=== PATIENT | female | born 1980 | race African-American/Black ===

== ENCOUNTER 2017-03-16 13:37 | Inpatient (IN) | payer OTHER ==
[2017-03-16] MEDS: LACTATED RINGERS 1,000 ML IV SCH ×3 (13:40→20:20)
[2017-03-16 14:49] VITALS: RESP 16
[2017-03-16 15:26] LABS: Amorphous Sediment,Urine Rare /hpf; Appearance,Urine Cloudy (Clear); Bacteria,Urine Rare /hpf; Bilirubin,Urine Negative (Negative); Glucose,Urine (UA) Negative (Negative); Ketones,Urine 2+ (Negative); Leukocyte Esterase,Urine Small (Negative); Mucus,Urine Rare /hpf; Nitrite,Urine Negative (Negative); Particle Count 3459; Protein,Urine Negative (Negative); Specific Gravity,Urine 1.008 (1.001-1.035); Squamous Epithelial Cell,Urine 2 /hpf (0-4); UA Billing (MACRO vs. MICRO) MICRO; Urobilinogen,Urine <2.0 mg/dL (<2.0); WBC,Urine 3 /hpf (0-5)
[2017-03-16 16:00] LABS: Basophils % (A) 0 %; CH 28.3; CHCM 31.7; Eosinophils % (A) 0 %; HCT 32.2 % (34.0-46.0); HDW 2.86; HGB 10.5 gm/dL (11.4-16.0); Hypochromasia Slight; Luc # (Auto) 0.17; Luc % (Auto) 2; Lymphocytes # (A) 1.6 k/uL (1.0-4.8); Lymphocytes % (A) 14 %; MCH 29.2 pg (25.0-35.0); MCHC 32.6 g/dL (31.0-37.0); MCV 89.7 fL (80.0-100.0); Mean Platelet Volume 8.6; Monocytes # (A) 0.3 k/uL (0-1.0); Monocytes % (A) 3 %; Neutrophils % (A) 81 %; RBC 3.59 m/uL (3.80-5.40); RDW 14.9 % (11.5-15.5); WBC 11.1 k/uL (3.8-10.6); WBC (Perox) 11.77
--- NOTE | 2017-03-16 16:44 | P.HPOB ---
History of Present Illness H&P Date: 03/16/17 Chief Complaint: petitioned due to suicidal ideation, 37 weeks 5 days 37 year old presented to triage at 37 weeks 5 days complaining of contractions. HEr cervix is 2-3/50/-3. She was stephy every few minutes when she arrived but they spaced out now and have stopped. Upon questioning, pt admits that today she had thoughts of hurting herself. She has a history of bipolar and schizoaffective disorder. She also has a history of cocaine use. She was in [place] for treatment and then recently moved to [facility]. The [facility] today she woke up with thoughts of suicidal ideation. She admits to wanting to hang herself earlier today. I asked. She was having resolve even though she was . She said "yes". Review of Systems All systems: negative Constitutional: Denies chills, Denies fever Eyes: denies blurred vision, denies pain Ears, nose, mouth and throat: Denies headache, Denies sore throat Cardiovascular: Denies chest pain, Denies shortness of breath Respiratory: Denies cough Gastrointestinal: Denies abdominal pain, Denies diarrhea, Denies nausea, Denies vomiting Genitourinary: Denies dysuria, Denies hematuria Musculoskeletal: Denies myalgias Integumentary: Denies pruritus, Denies rash Neurological: Denies numbness, Denies weakness Psychiatric: Denies anxiety, Denies depression Endocrine: Denies fatigue, Denies weight change Past Medical History Past Medical History: Musculoskeletal Disorder (chronic back pain) Additional Past Medical History / Comment(s): OB history: 1 ectopic, 1 vaginal delivery 11 years ago, This is her third and she has had no care-treated for cocaine use during this . dating by 23 week US. O+, abs neg, Rub nonimmune, HEp B neg. GBS neg. History of Any Multi-Drug Resistant Organisms: None Reported Past Surgical History: Orthopedic Surgery (back surgery) Additional Past Surgical History / Comment(s): mandibular sugery Past Psychological History: Bipolar, Schizoaffective Disorder Smoking Status: Former smoker Past Drug Use History: Cocaine (last used one month ago) Medications and Allergies Allergies Allergy/AdvReac Type Severity Reaction Status Date / Time No Known Allergies Allergy Verified 03/16/17 13:42 Exam Osteopathic Statement: *. No significant issues noted on an osteopathic structural exam other than those noted in the History and Physical/Consult. - Vital Signs Vital signs: Vital Signs Temp Pulse Resp BP Pulse Ox 03/16/17 13:43 96.9 F L 76 16 114/68 100 Intake and Output 03/16/17 03/16/17 03/16/17 06:59 14:59 22:59 Other: Weight 60.781 kg Patient Weight 03/17/17 06:59 Weight 60.781 kg Heart: Regular rate and rhythm Lungs: Clear to auscultation bilaterally Abdomen: Soft, nontender Extremities: Negative Homans sign Results Result Diagrams: 03/16/17 15:38 03/16/17 15:38 Abnormal Lab Results - Last 24 Hours (Table) 03/16/17 03/16/17 Range/Units 15:15 15:38 WBC 11.1 H (3.8-10.6) k/uL RBC 3.59 L (3.80-5.40) m/uL Hgb 10.5 L (11.4-16.0) gm/dL Hct 32.2 L (34.0-46.0) % Neutrophils # 9.0 H (1.3-7.7) k/uL Urine Appearance Cloudy H (Clear) Urine Ketones 2+ H (Negative) Ur Leukocyte Esterase Small H (Negative) Amorphous Sediment Rare H (None) /hpf Urine Bacteria Rare H (None) /hpf Urine Mucus Rare H (None) /hpf Assessment and Plan (1) 37 weeks gestation of Status: Acute (2) Suicidal ideation Status: Acute Plan: 1. admit to [facility] 2. NST q shift 3. psych consult 4. sitter to stay with patient
[2017-03-16 18:33] VITALS: BMI 22.3
[2017-03-17] MEDS: LACTATED RINGERS 1,000 ML IV SCH ×3 (04:04→07:02)
--- NOTE | 2017-03-17 05:02 | P.MSEPDOC ---
Presenting Problems - Arrival Data Date of Arrival on Unit: 03/16/17 Time of Arrival on Unit: 13:30 Mode of Transport: EMS - Complaint OB-Reason for Admission/Chief Complaint: Possible Onset of Labor, Other Comment: hx of cocaine use with preg. states not taken for last month Medical History - Information : 3 Para: 1 Term: 1 : 0 Abortions: Spontaneous or Elective: 1 Number of Living Children: 1 - Gestational Age Expected Date of Delivery: 04/01/17 Gestational Age by KOBI (wks/days): 37 Weeks and 6 Days - History Complications: No Care Review of Systems - Review of Systems Constitutional: No problems Breast: No problems ENT: No problems Cardiovascular: No problems Respiratory: No problems Gastrointestinal: No problems Genitourinary: No problems Musculoskeletal: No problems Neurological: No problems Skin: No problems Comment: states high risk preg due to drugs, cocaine. giving baby up. doesnt have last child. Vital Signs - Temperature Temperature: 96.7 F Temperature Source: Tympanic - Pulse Radial Pulse Rate: 84 Pulse Assessment Method: Automatic Cuff - Respirations Respiratory Rate: 16 Oxygen Delivery Method: Room Air O2 Sat by Pulse Oximetry: 100 - Blood Pressure Right Arm Blood Pressure: 112/72 Blood Pressure Mean: 85 Blood Pressure Source: Automatic Cuff Medical Screen Scoring (Pre) - Cervical Exam Dilation: 1-3 cm = 1 Effacement: More than 50% = 2 Membranes: Intact - Uterine Contractions Frequency: > 5 minutes apart = 1 Duration: > 40 seconds = 2 Intensity: N/A - Maternal Vital Signs Maternal Temperature: N/A Maternal Blood Pressure: N/A Signs of Preeclampsia: N/A Maternal Respirations: N/A - Maternal Trauma Maternal Trauma: N/A - Assessment Baseline FHR: 135 Heart Rate - NICHD Category: Category I (Normal) = 0 NST: Reactive Position: N/A Station: N/A - Total Score Total Score (Pre): 6 - Level of Risk Level of Risk: Medium (6-9) Physician Notification (Pre) - Physician Notified Physician Notified Date: 03/16/17 Physician Notified Time: 13:45 Spoke With: dr maria r Louise Order Received: Yes Medical Screen Scoring (Post) - Cervical Exam Dilation: Exam Deferred Effacement: Exam Deferred Membranes: Intact - Uterine Contractions Frequency: > 5 minutes apart = 1 Duration: N/A Intensity: N/A - Maternal Vital Signs Maternal Temperature: N/A Maternal Blood Pressure: N/A Signs of Preeclampsia: N/A Maternal Respirations: N/A - Total Score Total Score (Post): 1 Physician Notification (Post) - Physician Notified Physician Notified Date: 03/16/17 Physician Notified Time: 16:15 New Order Received: Yes (dr heck in hospital on unit/ talking with pt.) - Notification Comment Comment: pt under observation and s.s. precautions. with sitter. until psy consulting completed Disposition - Disposition OB Disposition: Admit I agree with the RN Medical Screening Exam: Yes Risk & Benefit of care provided described in d/c instruction: Yes Diagnosis: FALSE LABOR AT OR AFTER 37 COMPLETED WEEKS OF GESTATION
--- NOTE | 2017-03-17 05:12 | P.PN ---
Progress Note - Text Pt resting comfortably in bed. She is waiting for her the psychiatrist to come see her. She had a good meal last night and is sleeping ok. NSTs have been reactive. Occasional contractions. Good movement. VSS Abdomen is soft and nontender Extremeties: neg homans and no edema A1. at 37 weeks 6 days 2. suicidal ideation 3. hx bipolar and schizoaffective disorder 4. hx recent cocaine abuse and current rehab stay P1. really looking for psych recs to see where pt should be placed at this time
[2017-03-17 21:58] VITALS: BP 110/76; PULSE 76; TEMP 97.8
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
== END 2017-03-17 22:48 | DRG 775 ==
LOC: FBPOP 13:37 → 4FBP 16:45
PROVIDERS: ADMIT Obstetrics & Gynecology; ATTEND Obstetrics & Gynecology
DX: O99.344 Other mental disorders complicating childbirth (principal); R45.851 Suicidal ideations; F25.9 Schizoaffective disorder, unspecified; M54.9 Dorsalgia, unspecified; G89.29 Other chronic pain; F32.9 Major depressive disorder, single episode, unspecified; F14.10 Cocaine abuse, uncomplicated; F43.10 Post-traumatic stress disorder, unspecified; Z3A.37 37 weeks gestation of pregnancy
CPT/HCPCS: 59025; 80306; 81001; 82947; 85025; 99213

== ENCOUNTER 2017-03-17 22:56 | Inpatient (IN) | payer MEDICAID, OTHER ==
[2017-03-18] MEDS ORDERED: ACETAMINOPHEN TAB 325 MG TAB PO PRN (04:50)
[2017-03-18 06:06] VITALS: BMI 41.1
--- NOTE | 2017-03-19 08:41 | P.OBCN ---
History of Present Illness Consult date: 03/19/17 Reason for consult: other (, no care) Chief complaint: suicidal ideation, contractions, hx cocaine abuse History of present illness: 37 year old G 3 P1 is now 38 weeks and 1 day admitted to the mental health unit and [facility]. She presented to the hospital 3 days ago complaining of contractions that did resolve but she was kept because she admitted to thoughts of hurting herself and had a plan to hang herself. Currently she has good movement, no vaginal bleeding, irregular contractions. NSTs have been reactive. Review of Systems All systems: negative Constitutional: Denies chills, Denies fever Eyes: denies blurred vision, denies pain Ears, nose, mouth and throat: Denies headache, Denies sore throat Cardiovascular: Denies chest pain, Denies shortness of breath Respiratory: Denies cough Gastrointestinal: Denies abdominal pain, Denies diarrhea, Denies nausea, Denies vomiting Genitourinary: Denies dysuria, Denies hematuria Musculoskeletal: Denies myalgias Integumentary: Denies pruritus, Denies rash Neurological: Denies numbness, Denies weakness Psychiatric: Denies anxiety, Denies depression Endocrine: Denies fatigue, Denies weight change Past Medical History Past Medical History: Musculoskeletal Disorder Additional Past Medical History / Comment(s): OB history: 1 ectopic, 1 vaginal delivery 11 years ago, This is her third and she has had no care-treated for cocaine use during this . dating by 23 week US. O+, abs neg, Rub nonimmune, HEp B neg. GBS neg. History of Any Multi-Drug Resistant Organisms: None Reported Past Surgical History: Orthopedic Surgery Additional Past Surgical History / Comment(s): mandibular sugery Past Anesthesia/Blood Transfusion Reactions: No Reported Reaction Smoking Status: Former smoker - Past Family History Father History Unknown: Yes Medications and Allergies Home Medications Medication Instructions Recorded Confirmed Type No Known Home Medications [No 03/18/17 03/18/17 History Known Home Medications] Allergies Allergy/AdvReac Type Severity Reaction Status Date / Time No Known Allergies Allergy Verified 03/18/17 08:20 Exam Osteopathic Statement: *. No significant issues noted on an osteopathic structural exam other than those noted in the History and Physical/Consult. - Vital Signs Vital signs: Vital Signs Temp Pulse Resp BP 03/19/17 03:44 98.0 F 67 18 108/70 Heart: Regular rate and rhythm Lungs: Clear to auscultation bilaterally Abdomen: Soft, nontender and gravid Extremities: Negative Homans sign. Assessment and Plan (1) 38 weeks gestation of Status: Acute Plan: 1. Continue nonstress tests every shift while patient is in the hospital 2. Encouraged patient to ambulate more to increased blood flow prevent blood clots.
[2017-03-19] MEDS ORDERED: ONDANSETRON 4 MG TAB PO PRN (16:47)
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
[2017-03-20] MEDS: PRENATAL VIT-IRON-FOLIC ACID 1 EACH CAP PO SCH (12:54)
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
--- NOTE | 2017-03-20 15:23 | PN ---
PROGRESS NOTE DATE OF SERVICE: 03/19/2017. INTERVAL HISTORY: The patient has been doing fair. The patient had a quiet evening last night. She slept about 4.5 hours. She did nap some later in the day. Today she slept in earlier in the day. She did attend 1 group. She has been up doing some physical activity mainly walking for which she has been encouraged to make efforts. She tends to keep to herself. Her mood is down. It is noteworthy that today she talked with staff about the possibility of adoption which she is willing to pursue. She feels that is an appropriate option for her. It is noted that she does have 1 child that was stillborn and 1 living child who was placed out of the house. She notes that the father of the child she is with . She continues to report a down mood. She seems to feel somewhat relieved in making the decision about adoption. She has been seen for obstetric consultation. MENTAL STATUS: Patient was in her room lying in bed when I walked in, she sat up on the bed. She made a few comments that were somewhat sarcastic though in a way humerus. She was a little more responsive overall in the interview. She answered questions with direct responses. Her thoughts were clear and her affect was somewhat constricted though also anxious. Her mood dysphoric. She was moderately distressed. It is noteworthy that she showed a little greater emotional responsiveness. Toward the end of the interview, she was able to smile a little. She showed no evidence of thought disorder. ASSESSMENT: I will continue the current diagnosis and treatment plan. We will continue the patient off psychotropic medications. I had extensive discussion with the patient regarding issues related to her past and how it impacts her in her current life. It is also noted the patient was able to identify 1 positive area in her life which was that she had played flute in school. She talked about how if she had a flute it would be something she could focus on to feel better about herself. We will continue to focus on stabilization and discharge planning. MMODL / DONNAN: [id number] / MTDD
[2017-03-20] MEDS ORDERED: DOCUSATE 100 MG CAP PO PRN (22:01)
--- NOTE | 2017-03-21 11:13 | PN ---
PROGRESS NOTE Date of Service: 03/20/2017 CHIEF COMPLAINT: The patient was depressed. She had suicide thinking. She was hopeless. She is in late stages of and had a bleak outlook as far as her , delivery and child care worker. INTERVAL HISTORY: The patient has been doing fair. She said that she did not sleep at all last night until about 5 in the morning and then she slept for about 3 hours and was awake by 8. She says it has made her feel quite tired today though she does not believe that she could take a nap. She has a somewhat better outlook. She is in agreement with the idea of referral for adoption. She seems to understand the process fairly well. She believes that it is the best choice for her given her circumstances. She does say that she is positive about returning to [place]. She seems to be improving in her mood. She has been more active. She comes out in the day area. She interacts with others. She has had some intermittent contractions. She has not had other changes in her general health. MENTAL STATUS: Patient gave good eye contact. Psychomotor activity was a little restless. Speech was clear. She answered questions with direct responses. She was spontaneous and interactive. Her affect was a little constricted though not significantly so. She smiled. She laughs some. Her mood was much more positive today than yesterday. Her mood does seem to fluctuate. There was no indication of thought disorder. She reports no immediate impulse of self-harm. ASSESSMENT: I will continue the current diagnosis and treatment plan. We will continue the patient off psychotropic medications. Obstetrics is consulting and making recommendations for appropriate options for management of her late stage of as well as delivery. MMODL / IJN: [id number] /
[2017-03-21] MEDS: PRENATAL VIT-IRON-FOLIC ACID 1 EACH CAP PO SCH (12:26)
--- NOTE | 2017-03-21 16:12 | P.PN ---
Progress Note - Text PAtient seen and examined in her room. She says she feels good movement, denies contractions or loss of fluid. c/o a headache. NST reactive abdomen is soft and nontender We did discuss that she could be transferred to [facility] where they have MFM, NICU and Mental Health. If she does not get transferred it is possible I may deliver her after she is 39 weeks.
--- NOTE | 2017-03-22 06:14 | PN ---
PROGRESS NOTE DATE OF SERVICE: 03/21/2017 CHIEF COMPLAINT: The patient was depressed. She had suicide thinking. She was hopeless. She is in late stages of and had a bleak outlook as far as her , delivery and child guidance counselor. INTERVAL HISTORY: Patient has been doing fairly well. She had a quiet evening last night. She reported that the previous night she barely slept at all and did not get to sleep until about 5 in the morning and slept for 3 hours last night. She said that last night she slept well and was feeling much refreshed for that. She chooses not to attend groups. She has been a little more physically active with doing some walking. She does talk with staff one-on-one. She has a better outlook. She feels fairly content and resolved about her plans for adoption. She has not had change in her general health. She has not had any initiation of more regular contractions. She has not had any significant complaints relating to her issues. MENTAL STATUS: Patient gave good eye contact. Psychomotor activity was a little restless. Her thoughts were clear. She was spontaneous and interactive. Her affect was somewhat anxious though fairly brought. Her mood was somewhat down at times though she also showed periods where she had a fairly positive mood. She did not appear to be significantly distressed. ASSESSMENT: I will continue the current diagnosis and treatment plan. We will continue to support the patient and focus on nonpharmacologic interventions for her depression. She does say that she has voices now and then that tell her that she should kill herself. She said she does not want to say too much to others because she is afraid that people will think she is "crazy". She acknowledges that she struggles with not wanting to talk about things from her past, but she recognizes the impact those things have on her current life. We reviewed discharge planning issues. We will continue to focus on stabilization and discharge planning. MMODL / IJN: [id number] /
[2017-03-22 06:52] VITALS: BP 110/64; PULSE 70; RESP 18; TEMP 98.4
[2017-03-22] MEDS: PRENATAL VIT-IRON-FOLIC ACID 1 EACH CAP PO SCH (11:15)
--- NOTE | 2017-03-23 08:33 | PN ---
PROGRESS NOTE DATE OF SERVICE: 03/22/2017. CHIEF COMPLAINT: The patient was depressed. She had suicide thinking. She was hopeless. She is in late stages of and had a bleak outlook as far as her , delivery and early childhood education instructor. INTERVAL HISTORY: Patient has been doing fairly well. She had a quiet evening last night. She slept well. She was quite pleased by being able to get a good night's sleep. She has been up and about. She comes out in the day area. She has continued to have 1 on 1 support, which she seems to respond to well. She can be quite social in that situation. She does come out in the day area. She prefers not to attend groups. She says that she has been in a number of treatment centers and has been in many groups and does not feel that at this point she would benefit much by being in groups. She has not had any specific complaints relating to her . She currently is not on any psychotropic medications. MENTAL STATUS: Patient gave good eye contact. She was a little restless. Speech was clear. Her affect was in a reasonable range. She smiled. Her mood is even. She did not appear to be distressed. ASSESSMENT: I will continue the current diagnosis and treatment plan. The patient has been doing fairly well in terms of her mood and outlook. She seems fairly well adjusted to the plans she has put in place in regards to aftercare for her infant. Will continue to focus on stabilization and discharge planning. POLI / ADWOA: [id number] /
== END 2017-03-22 22:21 | disposition short-term general hospital (02) | DRG 781 ==
LOC: 3MHU 22:56
PROVIDERS: ADMIT Psychiatry & Neurology Psychiatry; ATTEND Psychiatry & Neurology Psychiatry
DX: O99.343 Other mental disorders complicating pregnancy, third trimester (principal); R45.851 Suicidal ideations; F33.2 Major depressive disorder, recurrent severe without psychotic features; O99.323 Drug use complicating pregnancy, third trimester; F14.21 Cocaine dependence, in remission; F43.10 Post-traumatic stress disorder, unspecified; F41.9 Anxiety disorder, unspecified; Z3A.38 38 weeks gestation of pregnancy; Z62.810 Personal history of physical and sexual abuse in childhood; Z87.891 Personal history of nicotine dependence

== ENCOUNTER 2017-03-22 19:47 | Inpatient (IN) | payer OTHER ==
[2017-03-22] MEDS: LACTATED RINGERS 1,000 ML IV SCH (19:53)
--- NOTE | 2017-03-22 22:06 | US ---
EXAMINATION TYPE: US OB BPP wo non-stress DATE OF EXAM: 03/22/2017 COMPARISON: NONE CLINICAL HISTORY: nst. EXAM PERFORMED: Transabdominal (TA) BPP PARAMETERS: PRESENTATION: Vertex HEART RATE: 150bpm RHYTHM: Normal TREMAYNE: 13.1cm DIAPHRAGM IMAGED: yes BPP SCORIN. Breathin (1 episode of breathing of 30 second duration in 30 minutes of scanning time) 2. Movement: 2 (at least 2 discrete body movements in 30 minutes) 3. Tone: 2 (1 episode of active flexion/extension of limb) 4. TREMAYNE: 2 (TREMAYNE index > 5cm) TOTAL SCORE: 6 / 8 As above.
--- NOTE | 2017-03-22 22:06 | US ---
EXAMINATION TYPE: US OB >= 14 wk fetus DATE OF EXAM: 03/22/2017 COMPARISON: None CLINICAL HISTORY: size, BPP, TREMAYNE, position TECHNIQUE: Transabdominal (TA) GESTATIONAL AGE / DATING Physician Established: (38 weeks/4 days) EDC: 04/01/2017 Dates by LMP: Unknown Dates by First Scan: No previous Dates by Current Scan: (35 weeks/3 days) EDC: 04/23/2017 SURVEY IUP: Single PLACENTA: Posterior PREVIA: No Previa TREMAYNE: 12.8 cm Normal CERVICAL LENGTH (transabdominal: norm > 3.0cm): 3.3 cm BIOMETRY PRESENTATION: Vertex BPD: 8.6 cm 34 weeks / 6 days HC: 32.1 cm 36 weeks / 2 days AC: 29.4 cm 33 weeks / 3 days FL: 7.2 cm 36 weeks / 6 days ESTIMATED WEIGHT IN GRAMS: 2530 grams ESTIMATED WEIGHT IN LBS/OZS: 5 lbs. 9 oz. WEIGHT PERCENTAGE BASED ON ESTABLISHED DATES: <3% HC/AC: 1.09 Normal FL/AC: 24.45 Abnormal HEART RATE: 152 bpm RHYTHM: Normal Viable single IUP measuring 35 weeks 3 days with a heart rate of 152bpm and an estimated delivery paulie e of 04/23/2017 which is incongruent with physicians established dates of 04/01/2017. IMPRESSION: As above.
[2017-03-22 22:36] VITALS: BMI 23.3
[2017-03-22] MEDS ORDERED: TERBUTALINE 1 MG/ML VIAL SQ PRN (22:39)
[2017-03-22] MEDS ORDERED: OXYTOCIN 10 UNIT/ML 1 ML VIAL IM PRN (22:39)
[2017-03-22] MEDS ORDERED: LIDOCAINE 1% (PF) 10 MG/ML (30 ML SDV) SQ PRN (22:39)
[2017-03-22] MEDS ORDERED: METHYLERGONOVINE 0.2 MG/ML 1 ML AMP IM PRN (22:39)
[2017-03-22] MEDS ORDERED: CARBOPROST TROMETHAMINE 250 MCG/ML 1 ML AMP IM PRN (22:39)
[2017-03-23] MEDS: LACTATED RINGERS 1,000 ML IV SCH (04:01)
[2017-03-23] MEDS ORDERED: OXYTOCIN 20 UNITS/1000 ML NS 1,000 ML IV SCH ×2 (06:00→12:00)
[2017-03-23 06:45] LABS: Basophils % (A) 0 %; CH 29.6; CHCM 33.3; Eosinophils # (A) 0.1 k/uL (0-0.7); Eosinophils % (A) 1 %; HCT 32.6 % (34.0-46.0); HDW 2.99; HGB 10.6 gm/dL (11.4-16.0); Luc # (Auto) 0.22; Luc % (Auto) 2; Lymphocytes # (A) 2.3 k/uL (1.0-4.8); Lymphocytes % (A) 21 %; MCH 29.1 pg (25.0-35.0); MCHC 32.5 g/dL (31.0-37.0); MCV 89.5 fL (80.0-100.0); Mean Platelet Volume 9.7; Monocytes # (A) 0.4 k/uL (0-1.0); Monocytes % (A) 4 %; Neutrophils # (A) 7.5 k/uL (1.3-7.7); Neutrophils % (A) 71 %; RBC 3.65 m/uL (3.80-5.40); WBC 10.5 k/uL (3.8-10.6); WBC (Perox) 10.84
[2017-03-23] MEDS: BUTORPHANOL 1 MG/ML 1 ML VIAL IV PRN ×2 (09:23→11:22)
--- NOTE | 2017-03-23 10:13 | P.MSEPDOC ---
Presenting Problems - Arrival Data Date of Arrival on Unit: 03/22/17 Time of Arrival on Unit: 18:35 Mode of Transport: Portable - Complaint OB-Reason for Admission/Chief Complaint: Rule Out SROM Medical History - Information : 3 Para: 1 Term: 1 : 0 Abortions: Spontaneous or Elective: 1 Number of Living Children: 1 - Gestational Age Expected Date of Delivery: 04/01/17 Gestational Age by KOBI (wks/days): 38 Weeks and 5 Days Review of Systems - Review of Systems Constitutional: No problems Breast: No problems ENT: No problems Cardiovascular: No problems Respiratory: No problems Gastrointestinal: No problems Genitourinary: No problems Musculoskeletal: No problems Neurological: No problems Skin: No problems Vital Signs - Temperature Temperature: 97.4 F Temperature Source: Temporal Artery Scan - Pulse Right Sitting Brachial Pulse Rate: 80 Pulse Assessment Method: Automatic Cuff - Respirations Respiratory Rate: 16 Oxygen Delivery Method: Room Air O2 Sat by Pulse Oximetry: 99 - Blood Pressure Right Arm Sitting Blood Pressure: 114/80 Blood Pressure Mean: 91 Blood Pressure Source: Automatic Cuff Medical Screen Scoring (Pre) - Cervical Exam Dilation: 1-3 cm = 1 Membranes: Intact - Uterine Contractions Frequency: > 5 minutes apart = 1 Duration: > 40 seconds = 2 - Maternal Vital Signs Maternal Temperature: N/A Maternal Blood Pressure: N/A Signs of Preeclampsia: N/A Maternal Respirations: N/A - Maternal Trauma Maternal Trauma: N/A - Assessment Baseline FHR: 135 Heart Rate - NICHD Category: Category II (Indeterminate) = 3 NST: Non-reactive = 3 Position: N/A Station: N/A - Total Score Total Score (Pre): 10 - Level of Risk Level of Risk: High (10+) Physician Notification (Pre) - Physician Notified Physician Notified Date: 03/22/17 Physician Notified Time: 19:36 Spoke With: dr maria r Louise Order Received: Yes - Notification Comment Comment: orders for complete ob u/s, iv of LR at 125ml/hr, cervix exam Physician Notification (Post) - Physician Notified Physician Notified Date: 03/22/17 Physician Notified Time: 22:04 Spoke With: dr emeka Louise Order Received: Yes Disposition - Disposition OB Disposition: Admit, LDRP Suite I agree with the RN Medical Screening Exam: Yes Risk & Benefit of care provided described in d/c instruction: Yes Diagnosis: ABNLT IN HEART RATE AND RHYTHM COMP LABOR AND DELIVERY
--- NOTE | 2017-03-23 10:20 | P.HPOB ---
History of Present Illness H&P Date: 03/23/17 Chief Complaint: Induction of labor 37 year old presents at 38 weeks 3 days. She presented last evening from the mental health unit where she is admitted for thoughts of suicide because she thought her water broke. Amnisure was negative but while she was on NST she did have a deceleration in the heart rate. I ordered an US that showed normal TREMAYNE, 6/8 BPP, and IUGR. EFW 5#9oz and they are calling this 3rd%ile.. She has a history of cocaine use with this preganancy and dating is by a 23 week US at [facility] during an admission. She did not really have care with this . Due to the deceleration in the heart rate and the IUGR I am going to perform an induction of labor today. Cervix is 2-3 cm dilated, 50% effaced and -2 station. Review of Systems All systems: negative Constitutional: Denies chills, Denies fever Eyes: denies blurred vision, denies pain Ears, nose, mouth and throat: Denies headache, Denies sore throat Cardiovascular: Denies chest pain, Denies shortness of breath Respiratory: Denies cough Gastrointestinal: Denies abdominal pain, Denies diarrhea, Denies nausea, Denies vomiting Genitourinary: Denies dysuria, Denies hematuria Musculoskeletal: Denies myalgias Integumentary: Denies pruritus, Denies rash Neurological: Denies numbness, Denies weakness Psychiatric: Denies anxiety, Denies depression Endocrine: Denies fatigue, Denies weight change Past Medical History Past Medical History: No Reported History, Musculoskeletal Disorder Additional Past Medical History / Comment(s): OB history: 1 ectopic, 1 vaginal delivery 11 years ago, This is her third and she has had no care-treated for cocaine use during this . dating by 23 week US. O+, abs neg, Rub nonimmune, HEp B neg. GBS neg. History of Any Multi-Drug Resistant Organisms: None Reported Past Surgical History: Orthopedic Surgery Additional Past Surgical History / Comment(s): mandibular sugery, back surgery Past Anesthesia/Blood Transfusion Reactions: No Reported Reaction Past Psychological History: Bipolar, Depression, Schizoaffective Disorder Additional Psychological History / Comment(s): pt on current suicide precautions Smoking Status: Never smoker Past Alcohol Use History: None Reported Past Drug Use History: Cocaine - Past Family History Father History Unknown: Yes Medications and Allergies Home Medications Medication Instructions Recorded Confirmed Type No Known Home Medications [No 03/18/17 03/18/17 History Known Home Medications] Allergies Allergy/AdvReac Type Severity Reaction Status Date / Time No Known Allergies Allergy Verified 03/22/17 19:54 Exam Osteopathic Statement: *. No significant issues noted on an osteopathic structural exam other than those noted in the History and Physical/Consult. - Vital Signs Vital signs: Vital Signs Temp Pulse Resp BP Pulse Ox 03/23/17 10:13 97.4 F L 80 16 114/80 99 03/22/17 19:56 97.4 F L 80 16 114/80 99 Intake and Output 03/22/17 03/23/17 03/23/17 22:59 06:59 14:59 Other: # Voids 3 Weight 61.689 kg Heart: Regular rate and rhythm Lungs: Clear to auscultation bilaterally Abdomen: Soft, nontender Extremities: Negative Homans sign Results Result Diagrams: 03/23/17 06:26 Abnormal Lab Results - Last 24 Hours (Table) 03/23/17 Range/Units 06:26 RBC 3.65 L (3.80-5.40) m/uL Hgb 10.6 L (11.4-16.0) gm/dL Hct 32.6 L (34.0-46.0) % RDW 16.0 H (11.5-15.5) % Assessment and Plan (1) IUGR (intrauterine growth restriction) Status: Acute Plan: 1. induction of labor with amniotomy and pitocin 2. anticipate normal vaginal delivery
[2017-03-23] MEDS ORDERED: WITCH HAZEL 1 EACH MED..PAD TOPICAL PRN (11:52)
[2017-03-23] MEDS ORDERED: diphenhydrAMINE 50 MG/ML 1 ML VIAL IVP PRN ×2 (11:52)
[2017-03-23] MEDS ORDERED: LANOLIN CREAM 5 GM TUBE TOPICAL PRN (11:52)
[2017-03-23] MEDS ORDERED: diphenhydrAMINE 25 MG CAP PO PRN (11:52)
[2017-03-23] MEDS ORDERED: diphenhydrAMINE 50 MG CAP PO PRN (11:52)
[2017-03-23] MEDS ORDERED: HYDROCORTISONE 2.5% RECTAL CREAM 30 GM TUBE RECTAL PRN (11:52)
[2017-03-23] MEDS ORDERED: ZOLPIDEM 5 MG TAB PO PRN (11:52)
[2017-03-23] MEDS ORDERED: SIMETHICONE 80 MG CHEWABLE PO PRN (11:52)
[2017-03-23] MEDS ORDERED: BENZOCAINE/MENTHOL SPRAY 1 GM/SPRAY AEROSOL TOPICAL PRN (11:52)
--- NOTE | 2017-03-23 11:52 | P.PROBDLV ---
Vaginal Delivery Note - . Vaginal Delivery Note: 37-year-old presented at 38 weeks and 4 days for induction of labor. The baby is IUGR and she had a deceleration on the heart rate monitor last evening. Cervix is 2-3 cm dilated, 50% effaced, -2 station. She is stephy irregularly. heart tones 135 to 140s moderate variability and reactive. Pitocin was started. Amniotomy was performed at 8:50 AM Clear fluid noted. Her cervix was completely dilated at 11:27 AM. She pushed, and delivered a viable male infant over intact perineum at 11:33 AM. Head delivered OA, anterior shoulder delivered gentle downward traction followed by posterior shoulder and rest of body. Nose and mouth bulb suctioned, cord clamped and cut, infant placed mother's abdomen. Apgars 8, 9, weight 5 lbs. 2 oz. Placenta delivered spontaneously, intact with three-vessel cord at 11:35 AM. Vagina, cervix, perineum inspected. No lacerations noted. EBL 250 mL. Mother and baby in stable condition.
[2017-03-23] MEDS: ACETAMINOPHEN TAB 325 MG TAB PO PRN ×2 (12:41→21:36)
[2017-03-23] MEDS: IBUPROFEN 600 MG TAB PO PRN (15:40)
[2017-03-23] MEDS ORDERED: LORazepam 1 MG TAB PO PRN (19:58)
[2017-03-23] MEDS: SENNOSIDES-DOCUSATE SODIUM 1 EACH TAB PO SCH (21:37)
[2017-03-23] MEDS: LORazepam 0.5 MG TAB PO PRN (21:37)
[2017-03-24] MEDS: ACETAMINOPHEN TAB 325 MG TAB PO PRN ×3 (03:06→19:31)
[2017-03-24] MEDS: IBUPROFEN 600 MG TAB PO PRN ×2 (09:09→14:48)
[2017-03-24] MEDS: SENNOSIDES-DOCUSATE SODIUM 1 EACH TAB PO SCH ×2 (09:10→14:48)
[2017-03-24] MEDS: LACTATED RINGERS 1,000 ML IV SCH (11:37)
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
[2017-03-24] MEDS: LORazepam 0.5 MG TAB PO PRN (19:53)
--- NOTE | 2017-03-24 20:52 | CONS ---
PSYCHIATRIC CONSULTATION DATE OF CONSULTATION: 03/24/2017. PURPOSE FOR CONSULTATION: Evaluate for mood disorder in the face of recent delivery. INTERVAL HISTORY: Patient has been doing fairly well. I saw her yesterday after delivery. She was doing fair. She said that she had some anxiety and she was concerned about sleep issues. She does say her mood is somewhat down. I started her on a low dose of Ativan p.r.n. She apparently took 1 dose last evening which seemed to help her feel a little more calm. Nursing reports that she slept well last night. Today she has been up and about. Today she tells me she is doing fairly well. She thinks that the Ativan did help. She acknowledges that she has some mood difficulties though she is able to appropriately relate to a lot of emotions that she is going through about having delivered her baby and then the process of giving her baby up for adoption. She was able to have some insight into the idea that those kind of emotions would be certainly anticipated and not something that one imagines would be taken away simply by medication. Probably the most important thing for her in this regard is a lot of opportunity to talk through her feelings not only with professional such as a therapist but also people around her that can provide some emotional support. Overall she seems to be doing fairly well. She does not anticipate returning to her [facility] house once she is released from the hospital. When I saw her today she gave fairly good eye contact. She walked down the sandra and went to see her baby. It was noteworthy that she was very focused on the baby in a quite appropriate way. Her mood was somewhat down which also was appropriate. She otherwise was pleasant and polite in her manner. ASSESSMENT: I will continue the current diagnosis and treatment plan. I would continue her just on Ativan 0.25 mg p.r.n. I did share with the patient that I anticipate we will transfer her back to the psychiatric unit at least for an interim period prior to discharge to the community. She anticipates returning to her [facility] upon discharge. POLI / ADWOA: [id number] / MTDD
[2017-03-25] MEDS: IBUPROFEN 600 MG TAB PO PRN (08:05)
[2017-03-25] MEDS: LORazepam 0.5 MG TAB PO PRN (08:05)
[2017-03-25] MEDS: SENNOSIDES-DOCUSATE SODIUM 1 EACH TAB PO SCH (09:48)
[2017-03-25 09:52] VITALS: BP 118/72; PULSE 88; RESP 16; TEMP 98.4
== END 2017-03-25 15:14 | DRG 775 ==
LOC: FBPOP 19:47 → 4FBP 22:12
PROVIDERS: ADMIT Obstetrics & Gynecology; ATTEND Obstetrics & Gynecology
PROC: 10E0XZZ Delivery of Products of Conception, External Approach (ICD-10-PCS; principal; 2017-03-23)
PROC: 3E033VJ Introduction of Other Hormone into Peripheral Vein, Percutaneous Approach (ICD-10-PCS; 2017-03-23)
PROC: 10907ZC Drainage of Amniotic Fluid, Therapeutic from Products of Conception, Via Natural or Artificial Opening (ICD-10-PCS; 2017-03-23)
DX: O76 Abnormality in fetal heart rate and rhythm complicating labor and delivery (principal); R45.851 Suicidal ideations; O99.344 Other mental disorders complicating childbirth; O36.5930 Maternal care for other known or suspected poor fetal growth, third trimester, not applicable or unspecified; F25.9 Schizoaffective disorder, unspecified; F32.9 Major depressive disorder, single episode, unspecified; F41.9 Anxiety disorder, unspecified; Z3A.38 38 weeks gestation of pregnancy; Z37.0 Single live birth
CPT/HCPCS: 76805; 76819; 84112; 85025; 88307

== ENCOUNTER 2017-03-25 15:14 | Inpatient (IN) | payer MEDICAID, OTHER ==
[2017-03-25] MEDS ORDERED: ACETAMINOPHEN TAB 325 MG TAB PO PRN (15:49)
[2017-03-25] MEDS ORDERED: MAGNESIUM HYDROXIDE 2,400 MG/10 ML CUP PO PRN (15:49)
[2017-03-25] MEDS ORDERED: MAG HYDROX/AL HYDROX/SIMETH 30 ML CUP PO PRN (15:49)
[2017-03-25] MEDS ORDERED: BENZOCAINE/MENTHOL SPRAY 1 GM/SPRAY AEROSOL TOPICAL PRN (15:50)
[2017-03-25] MEDS ORDERED: TRIAMCINOLONE ACET 0.1% OINTMENT 15 GM TUBE TOPICAL PRN (15:51)
[2017-03-25] MEDS ORDERED: IBUPROFEN 600 MG TAB PO PRN (15:53)
[2017-03-25] MEDS ORDERED: SENNOSIDES-DOCUSATE SODIUM 1 EACH TAB PO PRN (15:54)
[2017-03-25] MEDS ORDERED: SIMETHICONE 80 MG CHEWABLE PO PRN (15:55)
[2017-03-25] MEDS ORDERED: WITCH HAZEL 1 EACH MED..PAD TOPICAL PRN (15:56)
[2017-03-25] MEDS ORDERED: QUEtiapine 25 MG TAB PO STA (17:11)
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
[2017-03-25] MEDS: QUEtiapine 100 MG TAB PO SCH (20:54)
[2017-03-26] MEDS: NICOTINE 14MG/24HR PATCH TRANSDERM SCH (09:04)
[2017-03-26] MEDS: QUEtiapine 25 MG TAB PO SCH ×2 (09:41→16:42)
--- NOTE | 2017-03-26 10:59 | P.PN ---
Progress Note - Text Interval History: Patient is a 37-year-old female who was seen today and she reports that she slept better last evening. She states she is no longer having any auditory hallucinations and reports no current suicidal ideation or wish to . She states that she is slightly less irritable but is still having crying spells. She states that her appetite is improved and she is now eating. Patient reports no side effects from the beginning of Seroquel yesterday. Mental Status: Appearance/Attitude: Patient is appropriately dressed, makes good eye contact and is cooperative. Behavior: Patient displays no psychomotor agitation or retardation. Speech/Language: Patient's speech is spontaneous, normal volume and rhythm and she is coherent. Thought Process: Patient is goal-directed and there is no evidence of circumstantial or tangential thought and no loose associations or flight of ideas. Thought Content: Patient reports that she is no longer hearing voices telling her to kill herself, denies any visual hallucinations currently and states that she is not having any paranoid or delusional ideation and none were elicited. Patient states that she slept better yesterday and is feeling less irritable but still has crying spells. She states that her appetite is improved and she is eating better today. Suicidal/Homicidal Ideation: Patient denies any current suicidal or homicidal ideation and states she no longer has a wish to . Sensorium/Cognition: Patient is alert and oriented to person, place, and time and her memory is grossly intact. Mood/Affect: Patient's mood remains slightly depressed and irritable and her affect is appropriate. Insight/Judgement: Patient's insight and judgment are fair. Assessment: Patient was started on Seroquel yesterday which she states she had a good response to in the past and she reports today no further auditory or visual hallucinations she is no longer having any suicidal ideation or wish to . She states that she slept better is less irritable and her appetite is improved. She reports no side effects from the medication. Plan: Will discontinue patient's one-to-one observation as the patient is longer having suicidal ideation and states she does not want to and is no longer having command auditory hallucinations. Patient will continue on Seroquel 25 mg twice a day and 100 mg at bedtime to target her psychotic symptoms and stabilize her mood. Patient was encouraged to attend groups and activities and participate.
[2017-03-26 15:52] LABS: Basophils % (A) 0 %; CH 28.4; CHCM 31.6; Eosinophils # (A) 0.1 k/uL (0-0.7); Eosinophils % (A) 1 %; HCT 36.1 % (34.0-46.0); HDW 2.84; HGB 11.5 gm/dL (11.4-16.0); Hypochromasia Slight; Luc # (Auto) 0.26; Luc % (Auto) 3; Lymphocytes # (A) 2.4 k/uL (1.0-4.8); Lymphocytes % (A) 25 %; MCH 28.7 pg (25.0-35.0); MCHC 31.7 g/dL (31.0-37.0); MCV 90.5 fL (80.0-100.0); Mean Platelet Volume 9.1; Monocytes # (A) 0.4 k/uL (0-1.0); Monocytes % (A) 4 %; Neutrophils # (A) 6.6 k/uL (1.3-7.7); Neutrophils % (A) 67 %; RBC 3.99 m/uL (3.80-5.40); RDW 15.4 % (11.5-15.5); WBC 9.9 k/uL (3.8-10.6); WBC (Perox) 9.82
[2017-03-26 16:17] LABS: ALT 34 U/L (9-52); AST 19 U/L (14-36); Alkaline Phosphatase 119 U/L (38-126); Anion Gap 8 mmol/L; Blood Urea Nitrogen 10 mg/dL (7-17); Calcium 9.3 mg/dL (8.4-10.2); Carbon Dioxide 24 mmol/L (22-30); Chloride 109 mmol/L (98-107); Glucose 83 mg/dL (74-99); Non-African American GFR(MDRD) >60 (>60 ml/min/1.73 sqM); Potassium 3.7 mmol/L (3.5-5.1); Sodium 141 mmol/L (137-145); Total Bilirubin 0.2 mg/dL (0.2-1.3); Total Protein 6.4 g/dL (6.3-8.2)
[2017-03-26] MEDS ORDERED: QUEtiapine 25 MG TAB PO SCH (17:00)
[2017-03-26] MEDS: QUEtiapine 100 MG TAB PO SCH (21:21)
[2017-03-27] MEDS: QUEtiapine 25 MG TAB PO SCH ×2 (08:52→15:42)
[2017-03-27] MEDS: NICOTINE 14MG/24HR PATCH TRANSDERM SCH (09:03)
--- NOTE | 2017-03-27 11:22 | P.PN ---
Progress Note - Text Interval History: Patient is a 37-year-old female who is seen today and states that she is much more stable after having started the Seroquel. She reports that she is no longer having any suicidal ideation and is not hearing any auditory hallucinations. She also denies feeling paranoid. Patient states that she is sleeping well and eating well. She reports no problems after the delivery. Patient stated that she did not have her tubal ligation and so we discussed control prior to her discharge and she was open to this suggestion. Patient denied discussed her plans for discharge and she states that she hopes to return to the three-quarter house that she was in before her admission and states that she is interested in remaining in this area and not returning to the [place] area. Patient states that the baby will be discharged tomorrow and that she needs to sign further legal papers. Mental Status: Appearance/Attitude: Patient is appropriately and neatly dressed , makes good eye contact and is cooperative. Behavior: Patient does not display any psychomotor agitation or retardation. Speech/Language: Patient's speech is spontaneous and of normal volume and rhythm. Thought Process: Patient is goal-directed and there is no evidence of circumstantial or tangential thought and no loose associations or flight of ideas. Thought Content: Patient denies any auditory or visual hallucinations no delusions or paranoid ideation were elicited. Patient reports that she is feeling much more stable and states she is eating and sleeping well. She reports no difficulties after her delivery. Patient states that she is not feeling depressed, and is discussing her future plans. Suicidal/Homicidal Ideation: Patient denies any current suicidal or homicidal ideation. Sensorium/Cognition: Patient is alert and oriented to person, place, and time and her memory is grossly intact. Mood/Affect: Patient's mood is pleasant and her affect is appropriate. Insight/Judgement: Patient's insight and judgment are fair. Assessment: Patient is responded well to the beginning of Seroquel and states that her mood is stable and she is no longer having any suicidal thoughts, no auditory hallucinations and no homicidal ideation. She is eating and sleeping well and reports no difficulties after the delivery. Patient discussed her plans to [facility] or she was living prior to her admission and states that she wants to stay in the area on a long-term basis. Patient also discussed that the baby will be discharged tomorrow and that she needs to sign legal papers at that time. Plan: Patient will continue on Seroquel 25 mg twice a day and 100 mg at bedtime. Patient and I discussed contacting the OB to set up a follow-up appointment after her discharge as well as to discuss control options and the patient was agreeable with this. Patient's TSH was low on admission and I Will order a free T4 and T3 impatient if these are abnormal can follow-up as an outpatient. Patient and I discussed discharge plans for Friday and she was agreeable to this but wishes to stay until she can complete the legal documents the adoption of her son.
[2017-03-27] MEDS ORDERED: medroxyPROGESTERone 150 MG/ML 1ML VIAL IM ONE (14:30)
[2017-03-27] MEDS: QUEtiapine 100 MG TAB PO SCH (21:15)
[2017-03-28] MEDS: QUEtiapine 25 MG TAB PO SCH ×2 (08:05→16:08)
--- NOTE | 2017-03-28 15:31 | P.PN ---
Progress Note - Text Interval History: Patient is a 37-year-old female who was seen today she reports that she is doing well, sleeping and eating well and no further suicidal ideation. Patient continues to have difficulty finalizing discharge housing was contacted multiple shelters which had no openings as well as three- quarter housing options. Patient states that she completed the adoption process today without difficulty. Patient reports no complaints of side effects from the medication. Mental Status: Appearance/Attitude: Patient is appropriately dressed, makes good eye contact and is cooperative. Behavior: Patient does not display any psychomotor agitation or retardation Speech/Language: Patient's speech is spontaneous, normal volume and rhythm and she is coherent Thought Process: Patient is goal-directed, no evidence of circumstantial or tangential thought no loose associations or flight of ideas. . Thought Content: Patient denies any auditory or visual hallucinations no delusions or paranoid ideation were elicited. Patient reports she is sleeping and eating well. Patient reports she feels more stable and is not feeling irritated or angry. Suicidal/Homicidal Ideation: Patient denies any suicidal or homicidal ideation at this time. Sensorium/Cognition: Patient is alert and oriented to person, place, and time and her memory is grossly intact. Mood/Affect: Patient's mood is pleasant and her affect is appropriate. Insight/Judgement: Patient's insight and judgment are fair. Assessment: Patient is doing well and is stable on the current medication of Seroquel but due to her not following up to confirm her position at [facility] patient now needs to find further housing. Patient reports no side effects from the medication and she completed the adoption process earlier today. Plan: Patient and I discussed continuing her on the Seroquel at 25 mg twice a day and 100 mg at bedtime. Patient reports no side effects from the medication and is no longer having any suicidal ideation, auditory hallucinations and feels her mood is much more stable. Patient continues to have difficulty in finding housing post discharge, she was unable to find any shelters that had openings and we are waiting for an assessment from [facility] on Friday is located in [place] and I discussed with the patient that should they not accept her into their program we need to proceed with discharge and she needs to locate housing for herself post discharge.
[2017-03-28] MEDS: QUEtiapine 100 MG TAB PO SCH (20:06)
[2017-03-29 06:51] VITALS: TEMP 97.8
[2017-03-29] MEDS: QUEtiapine 25 MG TAB PO SCH ×2 (07:59→16:12)
--- NOTE | 2017-03-29 13:21 | P.PN ---
Progress Note - Text Interval History: Patient is a 37-year-old female who was seen today and she states that she is worried about leaving the hospital because she has no fixed discharge plans. Patient states she is more depressed today and began crying in the office about what will happen to her future. Patient reports that the adoption process went well yesterday and this is not the reason for her tears are feeling sad today. Patient reported no current suicidal ideation and states that she did not sleep well last evening. Patient could not elaborate further on why she is feeling sad today were did not sleep last evening other than worries about her discharge plans. Mental Status: Appearance/Attitude: Patient is dressed in a hospital gown, neatly groomed and makes good eye contact and is cooperative. Behavior: Patient does not display any psychomotor agitation or retardation. Speech/Language: Patient's speech is spontaneous and of normal volume and rhythm and she is coherent. Thought Process: Patient is goal-directed and there is no evidence of circumstantial or tangential thought and no loose associations or flight of ideas. Thought Content: Patient denies any auditory or visual hallucinations no delusions or paranoid ideation were elicited. Patient states she is sad today and states she thinks it's about worry she has about her future and discharge plans. Patient states she did not sleep well last evening but her appetite remains good. Suicidal/Homicidal Ideation: Patient denies any current suicidal or homicidal ideation. Sensorium/Cognition: Patient is alert and oriented to person, place, and time and her memory is grossly intact. Mood/Affect: Patient's mood is sad and tearful and her affect is appropriate. Insight/Judgement: Patient's insight and judgment are fair. Assessment: Patient presents crying and tearful today stating that she is sad and worried about her discharge plans. Patient is concerned that nothing will be found for her on Friday and she doesn't know where she will live once she is discharged. Patient states she did not sleep well last evening and is feeling more depressed today. She denied any auditory hallucinations and no suicidal ideation was elicited. Plan: Patient's Seroquel to be increased to 150 mg at bedtime and she will continue to take 25 mg twice a day, patient was encouraged to focus on making alternative discharge plans on Friday so that she is not relying on only one discharge plan. Patient and I again discussed the discharge on Friday and she was agreeable with this
[2017-03-29] MEDS: QUEtiapine 50 MG TAB PO SCH (20:05)
[2017-03-30] MEDS: QUEtiapine 25 MG TAB PO SCH ×2 (07:58→15:48)
[2017-03-30 08:25] VITALS: RESP 20
--- NOTE | 2017-03-30 11:27 | P.PN ---
Progress Note - Text Interval History: Patient is a 37-year-old female who was seen in her room and she was sleeping and stated she did not want to get up and come down to the interview room. Patient states that she slept better last evening on the increased dose of Seroquel. Patient has not been attending groups and activities today due to not feeling like it and states she is less depressed than she was yesterday and is no longer having any crying spells. Patient had nothing further to say in the interview ended early. Mental Status: Appearance/Attitude: Patient is lying in a hospital bed, with her eyes partially closed and she was cooperative. Behavior: Patient does not display any psychomotor agitation or retardation. Speech/Language: Patient is spontaneous and speaks in a normal volume and rhythm and is coherent. Thought Process: Patient is goal-directed, no evidence of circumstantial or tangential thought and no loose associations or flight of ideas. Thought Content: Patient denied any auditory or visual hallucinations no delusions or paranoid ideation were elicited. Patient states she is not feeling as tearful as she was yesterday and is staying in bed because she felt tired. She reported that she slept better last evening. Suicidal/Homicidal Ideation: Patient denies any current suicidal or homicidal ideation. Sensorium/Cognition: Patient is alert and oriented to person, place, and time and her memory is grossly intact. Mood/Affect: Patient's mood is pleasant and her affect is appropriate. Insight/Judgement: Patient's insight and judgment are fair. Assessment: Patient reports increase in the Seroquel at bedtime assisted her with her sleep and she is no longer feeling as depressed, but patient was in her bed this morning and would not come down to the office. She states she did not feel like speaking but reported no current problems. Patient states she is no longer having crying spells. Plan: Patient will continue on Seroquel 25 mg twice daily 150 mg at bedtime we are planning her discharge tomorrow. Patient reports no side effects from the current medications and she was encouraged to attend groups and activities.
[2017-03-30 15:49] VITALS: PULSE 90
[2017-03-30] MEDS: QUEtiapine 50 MG TAB PO SCH (20:11)
[2017-03-30 20:12] VITALS: BP 126/60
[2017-03-31] MEDS: QUEtiapine 25 MG TAB PO SCH (08:43)
--- NOTE | 2017-03-31 10:10 | P.DS ---
Providers Date of admission: 03/25/17 15:14 Expected date of discharge: 03/31/17 Attending physician: Toya Tejeda MD Consults: 03/25/17 15:49 Consult Physician Routine Consulting Provider: Solomon Mattson Consult Reason/Comments: follow up h & P Do you want consulting provider notified?: Yes Primary care physician: Stated None Hospital Course: Discharge Diagnoses: Major depressive disorder, recurrent with psychotic features . Reason for Admission:[ Patient is a 37-year-old female who had initially been admitted to the psychiatric unit prior to her delivery, patient had stated prior to her first admission that she had wanted to due to feeling overwhelmed and not wanting the , she told me she had attempted to have an but did not have the money to do so. She states that she was homeless at the time and was using cocaine several times a month and would receive care by walking into labor and delivery at [facility] in [place]. Patient then states that she went to [place] was there for 21 days and was discharged there to a [facility] house in [place] was there for one week prior to her first admission here. She is now returned to the psychiatric unit after delivery of her son and she reported continuing to feel overwhelmed and depressed and states that she was not upset about the adoption and does not regret the decision. Patient reported hearing voices that are telling her to kill herself and at the curtains in the room continue to move. She denied any paranoid ideation on admission and stated that she has not been sleeping well. She reported that she was having crying spells and racing thoughts which she described as ruminating about her present condition and the future. Patient reported suicidal ideation and was unsure on admission if she would act on it or not. Patient had been treated with medication over a year ago when she was seen at the [facility] and she states that she's been treated in the past for bipolar disorder and/or schizophrenia. She has been on Zyprexa, Prozac Seroquel and Klonopin in the past. Patient endorsed no manic symptoms but is able to endorse prior symptoms of depression and psychosis. She has had 2 prior admissions that occurred during her 20s and has no history of suicide attempts. Hospital Course:[ Patient was admitted on a voluntary basis, routine laboratory studies were performed the patient was placed on suicide precautions initially on a 1-1.. Patient reported that she had done well on Seroquel in the past and she was started on Seroquel 25 mg twice a day and 100 mg at bedtime. Patient reported that she was no longer hearing voices, no longer feeling suicidal and was much less irritable. Patient reported some increasing symptoms of depression and so her bedtime dose of Seroquel was increased to 150 mg. Patient was unable to return to the [facility] house that she had been asked prior to her first admission here and so is beginning to look for other [facility]. Patient reports that she was no longer feeling suicidal, no longer hearing voices and feeling much less depressed. Patient was also given Depo Provera for control due to her not having a tubal ligation after her delivery. Discharge Mental Status:Appearance/Attitude: Patient was appropriately dressed and neatly groomed and made good eye contact and was cooperative. Behavior: Patient does not explain any psychomotor agitation or retardation. Speech/Language: Patient's speech is spontaneous, normal volume and rhythm and she is coherent. Thought Process: Patient is goal-directed and there is no evidence of circumstantial or tangential thought and no loose associations or flight of ideas. Thought Content: Patient denies any auditory or visual hallucinations and no delusions or paranoid ideation were elicited. Patient reports that she is sleeping well, eating well and states that she is no longer feeling suicidal. Patient reports that she is concerned about the future and wants to remain sober and not return to the [place] area. Suicidal/Homicidal Ideation: Patient denies any current suicidal or homicidal ideation. Sensorium/Cognition: Patient is alert and oriented to person, place, and time and her memory is grossly intact. Mood/Affect: Patient's mood is stable and her affect is appropriate. Insight/Judgement: Patient's insight and judgment are fair. Laboratory Last Values WBC 9.9 k/uL (3.8-10.6) 03/26/17 15:38 RBC 3.99 m/uL (3.80-5.40) 03/26/17 15:38 Hgb 11.5 gm/dL (11.4-16.0) 03/26/17 15:38 Hct 36.1 % (34.0-46.0) 03/26/17 15:38 MCV 90.5 fL (80.0-100.0) 03/26/17 15:38 MCH 28.7 pg (25.0-35.0) 03/26/17 15:38 MCHC 31.7 g/dL (31.0-37.0) 03/26/17 15:38 RDW 15.4 % (11.5-15.5) 03/26/17 15:38 Plt Count 215 k/uL (150-450) 03/26/17 15:38 Neutrophils % 67 % 03/26/17 15:38 Lymphocytes % 25 % 03/26/17 15:38 Monocytes % 4 % 03/26/17 15:38 Eosinophils % 1 % 03/26/17 15:38 Basophils % 0 % 03/26/17 15:38 Neutrophils # 6.6 k/uL (1.3-7.7) 03/26/17 15:38 Lymphocytes # 2.4 k/uL (1.0-4.8) 03/26/17 15:38 Monocytes # 0.4 k/uL (0-1.0) 03/26/17 15:38 Eosinophils # 0.1 k/uL (0-0.7) 03/26/17 15:38 Basophils # 0.0 k/uL (0-0.2) 03/26/17 15:38 Hypochromasia Slight 03/26/17 15:38 Sodium 141 mmol/L (137-145) 03/26/17 15:38 Potassium 3.7 mmol/L (3.5-5.1) 03/26/17 15:38 Chloride 109 mmol/L (98-107) H 03/26/17 15:38 Carbon Dioxide 24 mmol/L (22-30) 03/26/17 15:38 Anion Gap 8 mmol/L 03/26/17 15:38 BUN 10 mg/dL (7-17) 03/26/17 15:38 Creatinine 0.60 mg/dL (0.52-1.04) 03/26/17 15:38 Est GFR (MDRD) Af Amer >60 (>60 ml/min/1.73 sqM) 03/26/17 15:38 Est GFR (MDRD) Non-Af >60 (>60 ml/min/1.73 sqM) 03/26/17 15:38 Glucose 83 mg/dL (74-99) 03/26/17 15:38 Calcium 9.3 mg/dL (8.4-10.2) 03/26/17 15:38 Total Bilirubin 0.2 mg/dL (0.2-1.3) 03/26/17 15:38 AST 19 U/L (14-36) 03/26/17 15:38 ALT 34 U/L (9-52) 03/26/17 15:38 Alkaline Phosphatase 119 U/L (38-126) 03/26/17 15:38 Total Protein 6.4 g/dL (6.3-8.2) 03/26/17 15:38 Albumin 3.3 g/dL (3.5-5.0) L 03/26/17 15:38 TSH 0.334 mIU/L (0.465-4.680) L 03/26/17 15:38 Free T4 0.69 ng/dL (0.78-2.19) L 03/26/17 15:38 Free T3 pg/mL 2.9 pg/ml (2.8-5.3) 03/26/17 15:38 Risk Assessment: Patient's risk for self-harm is low should she continue on her medication, remains sober and follow up with outpatient care. Discharge Plan: Patient will continue on Seroquel 25 mg twice a day and 150 mg at bedtime, she will be given prescriptions for this. Patient will keep appointment for post check up with Dr Sandoval. patient will discuss with her plans for tubal ligation. Patient also will have repeat TSH and free T4 with Ob as they were low on admission. Patient will be at [facility] in [place] and will follow up with [facility] Patient Condition at Discharge: Stable Plan - Discharge Summary New Discharge Prescriptions: New QUEtiapine [SEROquel] 25 mg PO DAILY@0900,1600 #28 tab QUEtiapine [SEROquel] 150 mg PO HS #21 tablet Discharge Medication List QUEtiapine [SEROquel] 25 mg PO DAILY@0900,1600 #28 tab 03/31/17 [Rx] QUEtiapine [SEROquel] 150 mg PO HS #21 tablet 03/31/17 [Rx] Follow up Appointment(s)/Referral(s): Jessica Sandoval DO [Doctor of Osteopathic Medicine] - 05/06/17 11:15 am Ambulatory/Diagnostic Orders: T4, Free (Free Thyroxine) [LAB.AMB] Time Frame: 05/06/17, Facility: [facility], Location: [facility] [LAB.AMB] Time Frame: 05/06/17, Location: Determined By Patient Patient Instructions/Handouts: Suicide Prevention for Adults (DC) Activity/Diet/Wound Care/Special Instructions: Activity and diet as tolerated. Avoid the use of street drugs and alcohol. Take all medications as prescribed. When you are in need of refills on your medications please contact your medical provider and/or outpatient psychiatrist to have this done. Please go to scheduled outpatient appointment for aftercare. If symptoms return or become worse call the crisis line at and/ or go to the nearest emergency room for an evaluation. Discharge Disposition: OTHER INSTITUTION NOT DEFINED
== END 2017-03-31 13:36 | disposition other institution (70) | DRG 885 ==
LOC: 3MHU 15:14
PROVIDERS: ADMIT Psychiatry & Neurology Psychiatry; ATTEND Psychiatry & Neurology Psychiatry
DX: F33.3 Major depressive disorder, recurrent, severe with psychotic symptoms (principal); R45.851 Suicidal ideations; Z59.0 Homelessness; Z91.410 Personal history of adult physical and sexual abuse; F53 Mental and behavioral disorders associated with the puerperium, not elsewhere classified; Z81.1 Family history of alcohol abuse and dependence; Z81.3 Family history of other psychoactive substance abuse and dependence; F14.10 Cocaine abuse, uncomplicated; Z79.899 Other long term (current) drug therapy
CPT/HCPCS: 80053; 84439; 84443; 84481; 85025

== ENCOUNTER 2018-10-05 20:38 | Emergency (ER) | payer OTHER ==
[2018-10-05 22:42] LABS: Amphetamine Screen,Urine Not Detected (NotDetected); Barbiturate Screen,Urine Not Detected (NotDetected); Benzodiazepines Screen,Urine Not Detected (NotDetected); Cocaine Screen,Urine Detected (NotDetected); Methadone Screen, Urine Not Detected (NotDetected); Opiate Screen,Urine Not Detected (NotDetected); Oxycodone Screen, Urine Not Detected (NotDetected); Phencyclidine Screen,Urine Not Detected (NotDetected); Tricyclic Antidepressant,Urine Detected (NotDetected); Urn Cannabinoid Scrn Not Detected (NotDetected)
--- NOTE | 2018-10-05 23:08 | ED ---
Psych HPI - General Chief Complaint: Psychiatric Symptoms Stated Complaint: Mental Health Time Seen by Provider: 10/05/18 21:24 Source: patient, RN notes reviewed, old records reviewed Mode of arrival: ambulatory - History of Present Illness Initial Comments: This is a 38-year-old female the ER for evaluation. Patient resents today for evaluation of suicidal ideation. Patient has significant psychiatric history. Psychosis. Patient states he does have increasing stressor the fact that is her brother's birthday who is improved since . Patient admits again suic idal thoughts and states that her medications are not workingJoni MD Complaint: suicidal ideation, altered mental status -: days(s) (3) Associated Psychiatric Symptoms: depression, suicidal ideation, racing thoughts, auditory hallucinations, delusions History of same: Yes Quality: constant, getting worse Improves With: none Worsens With: none Context: significant life stressor, other Associated Symptoms: denies other symptoms - Related Data Home Medications Medication Instructions Recorded Confirmed Prozac (Unknown Dose) 1 tab PO DAILY 10/05/18 10/05/18 Seroquel (Unknown Dose) 1 tab PO DAILY 10/05/18 10/05/18 Allergies Allergy/AdvReac Type Severity Reaction Status Date / Time No Known Allergies Allergy Verified 10/05/18 21:58 Review of Systems ROS Statement: Those systems with pertinent positive or pertinent negative responses have been documented in the HPI. ROS Other: All systems not noted in ROS Statement are negative. Past Medical History Past Medical History: No Reported History, Musculoskeletal Disorder Additional Past Medical History / Comment(s): OB history: 1 ectopic, 1 vaginal delivery 11 years ago, This is her third and she has had no care-treated for cocaine use during this . dating by 23 week US. O+, abs neg, Rub nonimmune, HEp B neg. GBS neg. History of Any Multi-Drug Resistant Organisms: None Reported Past Surgical History: Orthopedic Surgery Additional Past Surgical History / Comment(s): mandibular sugery, back surgery Past Anesthesia/Blood Transfusion Reactions: No Reported Reaction Past Psychological History: Bipolar, Depression, Schizoaffective Disorder Smoking Status: Current some day smoker Past Alcohol Use History: None Reported Past Drug Use History: Cocaine - Past Family History Father History Unknown: Yes General Exam Limitations: no limitations General appearance: alert, in no apparent distress Head exam: Present: atraumatic, normocephalic, normal inspection Eye exam: Present: normal appearance, PERRL, EOMI. Absent: scleral icterus, conjunctival injection, periorbital swelling ENT exam: Present: normal exam, mucous membranes moist Neck exam: Present: normal inspection. Absent: tenderness, meningismus, lymphadenopathy Respiratory exam: Present: normal lung sounds bilaterally. Absent: respiratory distress, wheezes, rales, rhonchi, stridor Cardiovascular Exam: Present: regular rate, normal rhythm, normal heart sounds. Absent: systolic murmur, diastolic murmur, rubs, gallop, clicks GI/Abdominal exam: Present: soft, normal bowel sounds. Absent: distended, tenderness, guarding, rebound, rigid Extremities exam: Present: normal inspection, full ROM, normal capillary refill. Absent: tenderness, pedal edema, joint swelling, calf tenderness Back exam: Present: normal inspection Neurological exam: Present: alert, oriented X3, CN II-XII intact Psychiatric exam: Present: normal affect, normal mood Skin exam: Present: warm, dry, intact, normal color. Absent: rash Course Vital Signs 10/05/18 20:58 Temperature 98.5 F Pulse Rate 78 Respiratory 18 Rate Blood Pressure 110/77 O2 Sat by Pulse 100 Oximetry - Reevaluation(s) Reevaluation #1: 10/05/18 23:08 Medical clear for psychiatric evaluation Medical Decision Making - Medical Decision Making 38 female to be admitted for psychiatric evaluation and treatment - Lab Data Lab Results 10/05/18 Range/Units 22:15 Urine Opiates Screen Not Detected (NotDetected) Ur Oxycodone Screen Not Detected (NotDetected) Urine Methadone Screen Not Detected (NotDetected) Ur Propoxyphene Screen Not Detected (NotDetected) Ur Barbiturates Screen Not Detected (NotDetected) U Tricyclic Antidepress Detected H (NotDetected) Ur Phencyclidine Scrn Not Detected (NotDetected) Ur Amphetamines Screen Not Detected (NotDetected) U Methamphetamines Scrn Not Detected (NotDetected) U Benzodiazepines Scrn Not Detected (NotDetected) Urine Cocaine Screen Detected H (NotDetected) U Marijuana (THC) Screen Not Detected (NotDetected) Disposition Clinical Impression: Suicidal ideation, Psychosis, Acute psychosis Disposition: TRANSFER TO PSYCH HOSP/UNIT Condition: Fair Is patient prescribed a controlled substance at d/c from ED?: No Referrals: None,Stated [Primary Care Provider] - 1-2 days
[2018-10-06 00:43] LABS: Appearance,Urine Clear (Clear); Bilirubin,Urine Negative (Negative); Blood,Urine Moderate (Negative); Color,Urine Yellow; Glucose,Urine (UA) Negative (Negative); Ketones,Urine Negative (Negative); Leukocyte Esterase,Urine Trace (Negative); Mucus,Urine Few /hpf; Nitrite,Urine Negative (Negative); PH, Urine 5.5 (5.0-8.0); Protein,Urine Negative (Negative); Specific Gravity,Urine 1.018 (1.001-1.035); Squamous Epithelial Cell,Urine 1 /hpf (0-4); WBC,Urine 3 /hpf (0-5)
[2018-10-06 00:49] LABS: Basophils % (A) 1 %; Eosinophils # (A) 0.1 k/uL (0-0.7); Eosinophils % (A) 1 %; HCT 38.6 % (34.0-46.0); HGB 12.6 gm/dL (11.4-16.0); Lymphocytes # (A) 3.8 k/uL (1.0-4.8); Lymphocytes % (A) 53 %; MCH 27.7 pg (25.0-35.0); MCHC 32.7 g/dL (31.0-37.0); MCV 84.9 fL (80.0-100.0); Monocytes # (A) 0.2 k/uL (0-1.0); Monocytes % (A) 3 %; Neutrophils # (A) 2.9 k/uL (1.3-7.7); Neutrophils % (A) 41 %; Platelet Count 152 k/uL (150-450); RBC 4.55 m/uL (3.80-5.40); RDW 14.1 % (11.5-15.5); WBC 7.3 k/uL (3.8-10.6)
[2018-10-06 00:52] LABS: ALT 59 U/L (9-52); AST 56 U/L (14-36); Albumin 3.2 g/dL (3.5-5.0); Alkaline Phosphatase 74 U/L (38-126); Anion Gap 7 mmol/L; Blood Urea Nitrogen 12 mg/dL (7-17); Carbon Dioxide 23 mmol/L (22-30); Chloride 110 mmol/L (98-107); Glucose 122 mg/dL (74-99); Potassium 3.6 mmol/L (3.5-5.1); Sodium 140 mmol/L (137-145); Total Bilirubin 0.3 mg/dL (0.2-1.3); Total Protein 5.7 g/dL (6.3-8.2)
[2018-10-06 01:54] LABS: T4, Free (Free Thyroxine) 1.15 ng/dL (0.78-2.19)
[2018-10-06 07:01] VITALS: BP 117/64; PULSE 84; RESP 16; TEMP 98
== END 2018-10-06 07:19 ==
LOC: EC 20:38
DX: R45.851 Suicidal ideations (principal); F23 Brief psychotic disorder; F25.1 Schizoaffective disorder, depressive type; F25.0 Schizoaffective disorder, bipolar type; F17.200 Nicotine dependence, unspecified, uncomplicated; Z79.899 Other long term (current) drug therapy
CPT/HCPCS: 36415; 80053; 80306; 81001; 81025; 82075; 84439; 84443; 85025; 99285

== ENCOUNTER 2018-10-12 22:07 | Emergency (ER) | payer OTHER ==
[2018-10-12] MEDS ORDERED: Acetaminophen-Codeine 300-30mg TAB PO STA (22:37)
[2018-10-12] MEDS ORDERED: DEXAMETHASONE 4 MG TAB PO STA (22:37)
[2018-10-12] MEDS ORDERED: IBUPROFEN 800 MG TAB PO STA (22:37)
[2018-10-12] MEDS ORDERED: ACETAMINOPHEN TAB 325 MG TAB PO STA (22:37)
[2018-10-12] MEDS ORDERED: IPRATROPIUM-ALBUTEROL 3 ML NEB INHALATION STA (22:37)
--- NOTE | 2018-10-12 22:42 | ED ---
SOB HPI - General Chief Complaint: Shortness of Breath Stated Complaint: CYNDIE Time Seen by Provider: 10/12/18 22:24 Source: patient, RN notes reviewed, old records reviewed Mode of arrival: ambulatory Limitations: no limitations - History of Present Illness Initial Comments: This is a 38-year-old female the ER for evaluation. Patient resents today for e valuation regarding shortness of breath cough and congestion history of smoking. Patient states she cannot catch her breath, denies fevers but does have chest pain with cough. No travel history no sick contacts. MD Complaint: shortness of breath, cough, pain with inspiration -: days(s) Severity: moderate Severity scale (1-10): 5 Quality: aching Consistency: constant Improves With: nothing Worsens With: exertion Known History Of: COPD, asthma Context: recent URI Associated Symptoms: pain with inspiration, fever, cough Treatments Prior to Arrival: none - Related Data Home Medications Medication Instructions Recorded Confirmed FLUoxetine HCL [PROzac] 20 mg PO DAILY 10/12/18 10/12/18 QUEtiapine [SEROquel] 100 mg PO BID@0700,1400 10/12/18 10/12/18 QUEtiapine [SEROquel] 300 mg PO HS 10/12/18 10/12/18 Previous Rx's Medication Instructions Recorded Albuterol Sulfate [Proair Hfa] 1 - 2 puff INHALATION Q4H PRN #1 10/12/18 inhaler Azithromycin [Zithromax Z-pack] 0 mg PO DIRECTED #1 pack 10/12/18 predniSONE 50 mg PO DAILY #5 tab 10/12/18 Allergies Allergy/AdvReac Type Severity Reaction Status Date / Time No Known Allergies Allergy Verified 10/12/18 22:22 Review of Systems ROS Statement: Those systems with pertinent positive or pertinent negative responses have been documented in the HPI. ROS Other: All systems not noted in ROS Statement are negative. Past Medical History Past Medical History: Asthma, Musculoskeletal Disorder Additional Past Medical History / Comment(s): OB history: 1 ectopic, 1 vaginal delivery 11 years ago, This is her third and she has had no care-treated for cocaine use during this . dating by 23 week US. O+, abs neg, Rub nonimmune, HEp B neg. GBS neg. History of Any Multi-Drug Resistant Organisms: None Reported Past Surgical History: Orthopedic Surgery Additional Past Surgical History / Comment(s): mandibular sugery, back surgery Past Anesthesia/Blood Transfusion Reactions: No Reported Reaction Past Psychological History: Bipolar, Depression, Schizoaffective Disorder Smoking Status: Current some day smoker Past Alcohol Use History: None Reported Past Drug Use History: Cocaine - Past Family History Father History Unknown: Yes General Exam Limitations: no limitations General appearance: alert, in no apparent distress Head exam: Present: atraumatic, normocephalic, normal inspection Eye exam: Present: normal appearance, PERRL, EOMI. Absent: scleral icterus, conjunctival injection, periorbital swelling ENT exam: Present: normal exam, mucous membranes moist Neck exam: Present: normal inspection. Absent: tenderness, meningismus, lymphadenopathy Respiratory exam: Present: wheezes, decreased breath sounds, prolonged expiratory. Absent: respiratory distress, rales, rhonchi, stridor Cardiovascular Exam: Present: regular rate, normal rhythm, normal heart sounds. Absent: systolic murmur, diastolic murmur, rubs, gallop, clicks GI/Abdominal exam: Present: soft, normal bowel sounds. Absent: distended, tenderness, guarding, rebound, rigid Extremities exam: Present: normal inspection, full ROM, normal capillary refill. Absent: tenderness, pedal edema, joint swelling, calf tenderness Back exam: Present: normal inspection Neurological exam: Present: alert, oriented X3, CN II-XII intact Psychiatric exam: Present: normal affect, normal mood Skin exam: Present: warm, dry, intact, normal color. Absent: rash Course Vital Signs 10/12/18 10/12/18 10/12/18 22:10 23:13 23:20 Temperature 97.7 F Pulse Rate 88 88 84 Respiratory 28 H Rate Blood Pressure 120/81 O2 Sat by Pulse 100 Oximetry 10/12/18 10/13/18 23:29 00:00 Temperature 97.8 F Pulse Rate 84 75 Respiratory 16 Rate Blood Pressure 122/80 O2 Sat by Pulse 93 L Oximetry Medical Decision Making - Medical Decision Making 38 female the ER for evaluation. Patient presents today for evaluation regarding shortness of breath, acute bronchitis. Patient sent better currently and can be discharged home - Radiology Data Radiology results: report reviewed (Chest x-rays negative for acute disease), image reviewed Disposition Clinical Impression: Asthma with exacerbation, Asthma with status asthmaticus Disposition: HOME SELF-CARE Condition: Good Instructions (If sedation given, give patient instructions): Asthma (ED), Acute Bronchitis (ED) Prescriptions: predniSONE 50 mg PO DAILY #5 tab Albuterol Sulfate [Proair Hfa] 1 - 2 puff INHALATION Q4H PRN #1 inhaler PRN Reason: Shortness Of Breath Azithromycin [Zithromax Z-pack] 0 mg PO DIRECTED #1 pack Is patient prescribed a controlled substance at d/c from ED?: No Referrals: Alicia Matt MD [Primary Care Provider] - 1-2 days
--- NOTE | 2018-10-12 23:08 | XR ---
EXAM: XR Chest, 2 Views CLINICAL HISTORY: ITS.REASON XR Reason: Pain TECHNIQUE: Frontal and lateral views of the chest. COMPARISON: No relevant prior studies available. FINDINGS: Lungs: Unremarkable. No consolidation. Pleural space: Unremarkable. No pneumothorax. Heart: Unremarkable. No cardiomegaly. Mediastinum: Unremarkable. Bones/joints: Unremarkable. IMPRESSION: No acute radiographic findings.
[2018-10-12] MEDS ORDERED: AZITHROMYCIN 500 MG TAB PO STA (23:46)
[2018-10-13 00:01] VITALS: BP 122/80; PULSE 75; RESP 16; TEMP 97.8
--- NOTE | 2018-10-14 04:37 | CDI ---
Documentation Clarification OP Dear Lukas NARAYAN, DO Please do addendum to ED report for missing HPI and Physical examination. Thank you, Khai Butler Food And Nutrition Professor If you have any questions, please contact Student Development Coordinator at [phone] [facility]
== END 2018-10-13 00:01 | disposition home or self-care (01) ==
LOC: EC 22:07
DX: J45.902 Unspecified asthma with status asthmaticus (principal); F25.1 Schizoaffective disorder, depressive type; F25.0 Schizoaffective disorder, bipolar type; F17.200 Nicotine dependence, unspecified, uncomplicated; Z79.899 Other long term (current) drug therapy
CPT/HCPCS: 99285; 94640 ×2; 71046; J8540

== ENCOUNTER 2018-10-29 12:12 | Emergency (ER) | payer OTHER ==
[2018-10-29 12:30] VITALS: TEMP 98.8
[2018-10-29] MEDS ORDERED: ALBUTEROL NEBULIZED 2.5 MG/3 ML INHALATION STA (12:44)
[2018-10-29] MEDS ORDERED: IPRATROPIUM-ALBUTEROL 3 ML NEB INHALATION STA (12:44)
[2018-10-29] MEDS ORDERED: DEXAMETHASONE SOD PHOSPHATE 10 MG/ML 1 ML VIAL IM STA (12:44)
--- NOTE | 2018-10-29 12:49 | ED ---
General Adult HPI - General Chief complaint: Shortness of Breath Stated complaint: CYNDIE/asthma Time Seen by Provider: 10/29/18 12:39 Source: patient, RN notes reviewed, old records reviewed Mode of arrival: ambulatory Limitations: no limitations - History of Present Illness Initial comments: 38-year-old female presenting for evaluation of cough and dyspnea. Patient has history of asthma. She states her symptoms began approximately one hour prior to arrival. She was out in the cold weather, states this is typically what triggers her asthma exacerbations. Denies any preceding symptoms, no URI symptoms, no fever chills. No chest pain. No abdominal pain nausea vomiting. She denies current . - Related Data Home Medications Medication Instructions Recorded Confirmed FLUoxetine HCL [PROzac] 20 mg PO DAILY 10/12/18 10/12/18 QUEtiapine [SEROquel] 100 mg PO BID@0700,1400 10/12/18 10/12/18 QUEtiapine [SEROquel] 300 mg PO HS 10/12/18 10/12/18 Previous Rx's Medication Instructions Recorded Albuterol Sulfate [Proair Hfa] 1 - 2 puff INHALATION Q4H PRN #1 10/12/18 inhaler Azithromycin [Zithromax Z-pack] 0 mg PO DIRECTED #1 pack 10/12/18 predniSONE 50 mg PO DAILY #5 tab 10/12/18 Albuterol Inhaler [Ventolin Hfa 1 - 2 puff INHALATION Q4HR PRN #1 10/29/18 Inhaler] inhaler predniSONE 50 mg PO DAILY #5 tab 10/29/18 Allergies Allergy/AdvReac Type Severity Reaction Status Date / Time No Known Allergies Allergy Verified 10/29/18 12:30 Review of Systems ROS Statement: Those systems with pertinent positive or pertinent negative responses have been documented in the HPI. ROS Other: All systems not noted in ROS Statement are negative. Past Medical History Past Medical History: Asthma, Musculoskeletal Disorder Additional Past Medical History / Comment(s): OB history: 1 ectopic, 1 vaginal delivery 11 years ago, This is her third and she has had no care-treated for cocaine use during this . dating by 23 week US. O+, abs neg, Rub nonimmune, HEp B neg. GBS neg. History of Any Multi-Drug Resistant Organisms: None Reported Past Surgical History: Orthopedic Surgery Additional Past Surgical History / Comment(s): mandibular sugery, back surgery Past Anesthesia/Blood Transfusion Reactions: No Reported Reaction Past Psychological History: Bipolar, Depression, Schizoaffective Disorder Smoking Status: Current some day smoker Past Alcohol Use History: None Reported Past Drug Use History: Cocaine - Past Family History Father History Unknown: Yes General Exam Limitations: no limitations General appearance: alert, in no apparent distress Head exam: Present: atraumatic, normocephalic Eye exam: Present: normal appearance, PERRL ENT exam: Present: normal exam Neck exam: Present: normal inspection. Absent: tenderness, meningismus Respiratory exam: Present: wheezes, decreased breath sounds, prolonged ex piratory. Absent: accessory muscle use Cardiovascular Exam: Present: regular rate, normal rhythm GI/Abdominal exam: Present: soft. Absent: distended Extremities exam: Present: normal capillary refill. Absent: pedal edema, calf tenderness Neurological exam: Present: alert, oriented X3, CN II-XII intact. Absent: motor sensory deficit Psychiatric exam: Present: normal affect, normal mood Skin exam: Present: warm, dry, intact. Absent: cyanosis, diaphoretic Course Vital Signs 10/29/18 10/29/18 12:28 13:12 Temperature 98.8 F Pulse Rate 84 68 Respiratory 26 H Rate Blood Pressure 125/80 O2 Sat by Pulse 99 Oximetry Medical Decision Making - Medical Decision Making 38 yo female with asthma exacerbation. Patient given albuterol, Atrovent, intramuscular steroids in the emergency department. After initial nebulization, she has improved air entry, decreased wheezing. She is feeling significantly better and eager for discharge. She will be prescribed albuterol, short course of prednisone. She will return with any worsening or changing symptoms. Please follow up with primary care physician. Disposition Clinical Impression: Asthma with exacerbation Disposition: HOME SELF-CARE Condition: Good Instructions (If sedation given, give patient instructions): Asthma (ED) Prescriptions: predniSONE 50 mg PO DAILY #5 tab Albuterol Inhaler [Ventolin Hfa Inhaler] 1 - 2 puff INHALATION Q4HR PRN #1 inhaler PRN Reason: Shortness Of Breath Is patient prescribed a controlled substance at d/c from ED?: No Referrals: Alicia Matt MD [Primary Care Provider] - 1-2 days Time of Disposition: 13:21
[2018-10-29 13:31] VITALS: RESP 20
[2018-10-29 13:35] VITALS: BP 152/65; PULSE 89
== END 2018-10-29 13:45 | disposition home or self-care (01) ==
LOC: EC 12:12
DX: J45.901 Unspecified asthma with (acute) exacerbation (principal); F25.1 Schizoaffective disorder, depressive type; F25.0 Schizoaffective disorder, bipolar type; F17.200 Nicotine dependence, unspecified, uncomplicated; Z79.899 Other long term (current) drug therapy
CPT/HCPCS: 94640; 99285; 96372; J1100

== ENCOUNTER 2018-11-02 09:05 | Emergency (ER) | payer OTHER ==
[2018-11-02 09:13] VITALS: RESP 18
[2018-11-02] MEDS ORDERED: SODIUM CHLORIDE 0.9% 1,000 ML IV STA (09:18)
[2018-11-02] MEDS ORDERED: ONDANSETRON 4 MG/2 ML VIAL IVP STA (09:18)
[2018-11-02] MEDS ORDERED: SODIUM CHLORIDE 0.9% 500 ML 500 ML IV STA (09:18)
--- NOTE | 2018-11-02 09:29 | ED ---
Nausea/Vomiting/Diarrhea HPI - General Chief complaint: Nausea/Vomiting/Diarrhea Stated complaint: vomiting Time Seen by Provider: 11/02/18 09:17 Source: patient, RN notes reviewed Mode of arrival: ambulatory Limitations: no limitations - History of Present Illness Initial comments: 38-year-old female presents emergency Department with chief complaint of nausea vomiting diarrhea. Patient symptoms started 2 days ago. Patient has diffuse abdominal cramping and bloating. Patient denies any melena or hematochezia. She doesn't contacts with some symptoms. Denies any localized abdominal pain, fever or chills. No chest pain or shortness breath. Patient denies any dysuria or hematuria denies any chance . - Related Data Previous Rx's Medication Instructions Recorded Ondansetron Odt [Zofran Odt] 4 mg PO Q8HR PRN #10 tab 11/02/18 Allergies Allergy/AdvReac Type Severity Reaction Status Date / Time No Known Allergies Allergy Verified 11/02/18 09:24 Review of Systems ROS Statement: Those systems with pertinent positive or pertinent negative responses have been documented in the HPI. ROS Other: All systems not noted in ROS Statement are negative. Past Medical History Past Medical History: Asthma, Musculoskeletal Disorder Additional Past Medical History / Comment(s): OB history: 1 ectopic, 1 vaginal delivery 11 years ago, This is her third and she has had no care-treated for cocaine use during this . dating by 23 week US. O+, abs neg, Rub nonimmune, HEp B neg. GBS neg. History of Any Multi-Drug Resistant Organisms: None Reported Past Surgical History: Orthopedic Surgery Additional Past Surgical History / Comment(s): mandibular sugery, back surgery Past Anesthesia/Blood Transfusion Reactions: No Reported Reaction Past Psychological History: Bipolar, Depression, Schizoaffective Disorder Smoking Status: Current every day smoker Past Alcohol Use History: None Reported Past Drug Use History: Cocaine - Past Family History Father History Unknown: Yes General Exam Limitations: no limitations General appearance: alert, in no apparent distress Head exam: Present: atraumatic, normocephalic, normal inspection Eye exam: Present: normal appearance, PERRL, EOMI. Absent: scleral icterus, conjunctival injection, periorbital swelling Neck exam: Present: normal inspection. Absent: tenderness, meningismus, lymphadenopathy Respiratory exam: Present: normal lung sounds bilaterally. Absent: respiratory distress, wheezes, rales, rhonchi, stridor Cardiovascular Exam: Present: regular rate, normal rhythm, normal heart sounds. Absent: systolic murmur, diastolic murmur, rubs, gallop, clicks GI/Abdominal exam: Present: soft, tenderness (Mild diffuse), normal bowel sounds. Absent: distended, guarding, rebound, rigid Back exam: Absent: CVA tenderness (R), CVA tenderness (L) Skin exam: Present: warm, dry, intact, normal color. Absent: rash Course Vital Signs 11/02/18 09:11 Temperature 97.8 F Pulse Rate 75 Respiratory 18 Rate Blood Pressure 120/71 O2 Sat by Pulse 99 Oximetry Medical Decision Making - Medical Decision Making 38-year-old female presented for nausea vomiting diarrhea. sick contacts with some symptoms. Labwork unremarkable. Patient was hydrated, given antiemetics and will be discharged. - Lab Data Result diagrams: 11/02/18 09:42 11/02/18 09:42 Lab Results 11/02/18 11/02/18 11/02/18 Range/Units 09:00 09:00 09:42 WBC 10.1 (3.8-10.6) k/uL RBC 5.02 (3.80-5.40) m/uL Hgb 13.7 (11.4-16.0) gm/dL Hct 42.7 (34.0-46.0) % MCV 85.0 (80.0-100.0) fL MCH 27.2 (25.0-35.0) pg MCHC 32.0 (31.0-37.0) g/dL RDW 14.0 (11.5-15.5) % Plt Count 148 L (150-450) k/uL Neutrophils % 67 % Lymphocytes % 27 % Monocytes % 4 % Eosinophils % 1 % Basophils % 0 % Neutrophils # 6.8 (1.3-7.7) k/uL Lymphocytes # 2.7 (1.0-4.8) k/uL Monocytes # 0.4 (0-1.0) k/uL Eosinophils # 0.1 (0-0.7) k/uL Basophils # 0.0 (0-0.2) k/uL Sodium (137-145) mmol/L Potassium (3.5-5.1) mmol/L Chloride (98-107) mmol/L Carbon Dioxide (22-30) mmol/L Anion Gap mmol/L BUN (7-17) mg/dL Creatinine (0.52-1.04) mg/dL Est GFR (CKD-EPI)AfAm (>60 ml/min/1.73 sqM) Est GFR (CKD-EPI)NonAf (>60 ml/min/1.73 sqM) Glucose (74-99) mg/dL Calcium (8.4-10.2) mg/dL Total Bilirubin (0.2-1.3) mg/dL AST (14-36) U/L ALT (9-52) U/L Alkaline Phosphatase (38-126) U/L Total Protein (6.3-8.2) g/dL Albumin (3.5-5.0) g/dL Lipase (23-300) U/L Urine Color Light Yellow Urine Appearance Clear (Clear) Urine pH 6.5 (5.0-8.0) Ur Specific [place] 1.007 (1.001-1.035) Urine Protein Negative (Negative) Urine Glucose (UA) Negative (Negative) Urine Ketones Negative (Negative) Urine Blood Negative (Negative) Urine Nitrite Negative (Negative) Urine Bilirubin Negative (Negative) Urine Urobilinogen <2.0 (<2.0) mg/dL Ur Leukocyte Esterase Trace H (Negative) Urine RBC <1 (0-5) /hpf Urine WBC 5 (0-5) /hpf Ur Squamous Epith Cells 6 H (0-4) /hpf Urine Bacteria Rare H (None) /hpf Urine Mucus Rare H (None) /hpf Urine HCG, Qual Not Detected (Not Detectd) 11/02/18 Range/Units 09:42 WBC (3.8-10.6) k/uL RBC (3.80-5.40) m/uL Hgb (11.4-16.0) gm/dL Hct (34.0-46.0) % MCV (80.0-100.0) fL MCH (25.0-35.0) pg MCHC (31.0-37.0) g/dL RDW (11.5-15.5) % Plt Count (150-450) k/uL Neutrophils % % Lymphocytes % % Monocytes % % Eosinophils % % Basophils % % Neutrophils # (1.3-7.7) k/uL Lymphocytes # (1.0-4.8) k/uL Monocytes # (0-1.0) k/uL Eosinophils # (0-0.7) k/uL Basophils # (0-0.2) k/uL Sodium 139 (137-145) mmol/L Potassium 3.4 L (3.5-5.1) mmol/L Chloride 105 (98-107) mmol/L Carbon Dioxide 27 (22-30) mmol/L Anion Gap 7 mmol/L BUN 11 (7-17) mg/dL Creatinine 0.71 (0.52-1.04) mg/dL Est GFR (CKD-EPI)AfAm >90 (>60 ml/min/1.73 sqM) Est GFR (CKD-EPI)NonAf >90 (>60 ml/min/1.73 sqM) Glucose 86 (74-99) mg/dL Calcium 9.5 (8.4-10.2) mg/dL Total Bilirubin 0.3 (0.2-1.3) mg/dL AST 17 (14-36) U/L ALT 30 (9-52) U/L Alkaline Phosphatase 69 (38-126) U/L Total Protein 6.2 L (6.3-8.2) g/dL Albumin 3.9 (3.5-5.0) g/dL Lipase 175 (23-300) U/L Urine Color Urine Appearance (Clear) Urine pH (5.0-8.0) Ur Specific [place] (1.001-1.035) Urine Protein (Negative) Urine Glucose (UA) (Negative) Urine Ketones (Negative) Urine Blood (Negative) Urine Nitrite (Negative) Urine Bilirubin (Negative) Urine Urobilinogen (<2.0) mg/dL Ur Leukocyte Esterase (Negative) Urine RBC (0-5) /hpf Urine WBC (0-5) /hpf Ur Squamous Epith Cells (0-4) /hpf Urine Bacteria (None) /hpf Urine Mucus (None) /hpf Urine HCG, Qual (Not Detectd) Disposition Clinical Impression: Gastroenteritis Disposition: HOME SELF-CARE Condition: Stable Instructions (If sedation given, give patient instructions): Acute Nausea and Vomiting (ED) Additional Instructions: Please return to the Emergency Department if symptoms worsen or any other concerns. Prescriptions: Ondansetron Odt [Zofran Odt] 4 mg PO Q8HR PRN #10 tab PRN Reason: Nausea Is patient prescribed a controlled substance at d/c from ED?: No Referrals: Alicia Matt MD [Primary Care Provider] - 1-2 days Time of Disposition: 10:10
[2018-11-02] MEDS ORDERED: KETOROLAC 30 MG/ML 1 ML VIAL IVP STA (09:42)
[2018-11-02 09:50] LABS: Basophils % (A) 0 %; Eosinophils # (A) 0.1 k/uL (0-0.7); Eosinophils % (A) 1 %; HCT 42.7 % (34.0-46.0); HGB 13.7 gm/dL (11.4-16.0); Lymphocytes # (A) 2.7 k/uL (1.0-4.8); Lymphocytes % (A) 27 %; MCH 27.2 pg (25.0-35.0); Monocytes # (A) 0.4 k/uL (0-1.0); Monocytes % (A) 4 %; Neutrophils # (A) 6.8 k/uL (1.3-7.7); Neutrophils % (A) 67 %; Platelet Count 148 k/uL (150-450); RBC 5.02 m/uL (3.80-5.40); WBC 10.1 k/uL (3.8-10.6)
[2018-11-02 09:55] LABS: Appearance,Urine Clear (Clear); Bacteria,Urine Rare /hpf; Bilirubin,Urine Negative (Negative); Blood,Urine Negative (Negative); Color,Urine Light Yellow; Glucose,Urine (UA) Negative (Negative); Ketones,Urine Negative (Negative); Leukocyte Esterase,Urine Trace (Negative); Mucus,Urine Rare /hpf; Nitrite,Urine Negative (Negative); PH, Urine 6.5 (5.0-8.0); Protein,Urine Negative (Negative); RBC,Urine <1 /hpf (0-5); Specific Gravity,Urine 1.007 (1.001-1.035); Squamous Epithelial Cell,Urine 6 /hpf (0-4); Urobilinogen,Urine <2.0 mg/dL (<2.0)
[2018-11-02 10:01] LABS: ALT 30 U/L (9-52); AST 17 U/L (14-36); Albumin 3.9 g/dL (3.5-5.0); Alkaline Phosphatase 69 U/L (38-126); Anion Gap 7 mmol/L; Blood Urea Nitrogen 11 mg/dL (7-17); Calcium 9.5 mg/dL (8.4-10.2); Carbon Dioxide 27 mmol/L (22-30); Chloride 105 mmol/L (98-107); Glucose 86 mg/dL (74-99); Lipase 175 U/L (23-300); Potassium 3.4 mmol/L (3.5-5.1); Sodium 139 mmol/L (137-145); Total Bilirubin 0.3 mg/dL (0.2-1.3); Total Protein 6.2 g/dL (6.3-8.2)
[2018-11-02] MEDS ORDERED: ONDANSETRON 4 MG ODT STARTER PACK 2 TAB BTL PO STA (10:58)
[2018-11-02 11:08] VITALS: BP 131/75; PULSE 66; TEMP 97
== END 2018-11-02 11:06 | disposition home or self-care (01) ==
LOC: EC 09:05
DX: K52.9 Noninfective gastroenteritis and colitis, unspecified (principal); F17.200 Nicotine dependence, unspecified, uncomplicated
CPT/HCPCS: 99284; 96374; 96375; 96361; 36415; 80053; 83690; 85025; 81001; 81025; J2405; J1885; S0119